=== PATIENT | male | born 1985 | race Two or more races ===

== ENCOUNTER 2017-09-12 09:25 | Emergency (ER) | payer OTHER ==
[2017-09-12 09:43] VITALS: TEMP 98.4; BMI 22.2
[2017-09-12] MEDS ORDERED: ONDANSETRON 4 MG/2 ML VIAL IVPB ONE (10:31)
[2017-09-12] MEDS ORDERED: MAG HYDROX/AL HYDROX/SIMETH 355 ML ORAL.SUSP PO ONE (10:36)
[2017-09-12] MEDS ORDERED: FAMOTIDINE 20 MG/50 ML IVPB 20 MG in PREMIX 50 IVPB ONE (10:36)
--- NOTE | 2017-09-12 10:37 | PDOC ---
History of Present Illness - General Chief Complaint: Vomiting/Diarrhea Stated Complaint: ABD CRAMPING, VOMITING Time Seen by Provider: 09/12/17 10:07 History Source: Patient Exam Limitations: No Limitations - History of Present Illness Travel History: No Initial Comments: 09/12/17 10:32 31-year-old gentleman no past medical history presenting with complaints of nausea, vomiting, diarrhea, nonradiating, crampy abdominal pain since last night. Patient states that he was fine when he was at work after he got home he began to have vomiting and diarrhea as well as crampy abdominal pain, no associated fever, chills, hematemesis, blood per rectum, melena. The patient does endorse feeling mild body aches and generalized weakness. The patient endorses that his daughter is feeling mild inversion of his symptoms. No recent travel. Patient denies any chest pain, back pain, neck pain, headache. Past History - Past Medical History Allergies/Adverse Reactions: Allergies Allergy/AdvReac Type Severity Reaction Status Date / Time No Known Allergies Allergy Verified 09/12/17 09:40 Home Medications: Ambulatory Orders Naproxen [Naprosyn] 500 mg PO BID PRN #20 tablet 01/06/13 No Home Medications 0 dose .ROUTE UTDICT 01/06/13 Oseltamivir Phosphate [Tamiflu -] 75 mg PO BID #10 capsule 11/19/15 Promethazine HCl/Codeine [Prometh-Codein 6.25-10 mg/5 ml] 5 ml PO Q8H PRN #50 syrup MDD 4 11/19/15 COPD: No Other medical history: denies. - Suicide/Smoking/Psychosocial Hx Smoking Status: Yes Smoking History: Never smoked Number of Cigarettes Smoked Daily: 7 Hx Alcohol Use: No Drug/Substance Use Hx: No Substance Use Type: Marijuana Review of Systems - Review of Systems Able to Perform ROS?: Yes Comments:: 09/12/17 10:34 Constitutional - no reported Fever, Chills, HEENT: no reported vision changes, sore throat Respiratory: no reported cough, sob, hemoptysis Cardiac: no reported chest pain, palpitations, light headedness, leg swelling Abd/GI: Endorses abd pain, nausea, vomiting, diarrhea no reported blood per rectum, melena, : no reported dysuria, frequency, discharge Musculskelatal - no reported back pain, joint swelling skin - no reported bruising, erythema, rash neurological: no reported headache, numbness, focal weakness, tingling, ataxia, hematologic: no reported anemia, easy bruising, easy bleeding *Physical Exam - Vital Signs Last Vital Signs Temp Pulse Resp BP Pulse Ox 98.4 F 59 L 19 121/66 98 09/12/17 09:40 09/12/17 09:40 09/12/17 09:40 09/12/17 09:40 09/12/17 09:40 - Physical Exam Comments: 09/12/17 10:35 GENERAL: The patient is awake, alert, and fully oriented, Nontoxic - in no acute distress. HEAD: Normocephalic, atraumatic. EYES: extraocular movements intact, sclera anicteric, conjunctiva clear. ENT: Normal voice, dry mucous membranes. NECK: Normal range of motion, supple LUNGS: Breath sounds equal, clear to auscultation bilaterally. No wheezes, no rhonchi, no rales. HEART: Regular rate and rhythm, normal S1 and S2 without murmur, rub or gallop. ABDOMEN: Soft, mild diffuse tenderness, worse on epgiastrcium/RUQ, normoactive bowel sounds. No guarding, no rebound. . No CVA tenderness EXTREMITIES: Normal range of motion, no edema. No clubbing or cyanosis. No cords, erythema, or tenderness. NEUROLOGICAL: No facial assymetry, Normal speech, PSYCH: Normal mood, normal affect. SKIN: Warm, Dry, normal turgor, ED Treatment Course - LABORATORY CBC & Chemistry Diagram: 09/12/17 11:06 09/12/17 11:06 Medical Decision Making - Medical Decision Making 09/12/17 10:36 31-year-old gentleman no past medical history presenting with complaint of nausea vomiting, diarrhea, crampy abdominal pain since last night without any fevers or chills. On exam the patient appears in no distress, has dry mucous membranes, abdomen reveals mild epigastric/right upper quadrant tenderness. Differential for the patient includes gastroenteritis, gb disease, pancreatitis , viral syndrome. Will obtain blood work, will hydrate the patient with 1 L of LR Will give Zofran for nausea, Pepcid, and Maalox 09/12/17 12:19 pt feeling paola tbilli elevated, in light of his RUQ tenderness will obtain a RUQ US will PO challenge the pt A portion of this note was documented by scribe services under my direction. I have reviewed the details of the note, within reason, and agree with the documentation with the following case summary and management plan written by me *DC/Admit/Observation/Transfer Diagnosis at time of Disposition: Gastroenteritis - Discharge Dispostion Disposition: HOME Condition at time of disposition: Improved Admit: No - Referrals Referrals: Kenneth Zacarias MD [Primary Care Provider] - - Patient Instructions Printed Discharge Instructions: DI for Viral Gastroenteritis -- Adult Additional Instructions: Return to the emergency department immediately with ANY new, persistent or worsening symptoms including worsening abdominal pain, fevers, inability to tolerate oral intake, chest pain, shortness of breath or any other concerns. Stay well hydrated. You MUST call and follow up with your doctor tomorrow. Your emergency department visit is not complete without a followup with your doctor for reevaluation. Please make sure your doctor reviews the results of your emergency evaluation. Print Language: AMHARIC - Post Discharge Activity
[2017-09-12] MEDS ORDERED: LACTATED RINGERS SOLUTION 1000 ML INFUS.BAG IV ONE (10:45)
[2017-09-12] MEDS ORDERED: MAG HYDROX/AL HYDROX/SIMETH 30 ML UNIT-DOSE CUP ONE (11:14)
[2017-09-12] MEDS ORDERED: FAMOTIDINE 20 MG/50 ML IVPB 20 MG/50 ML MG IVPB ONE (11:15)
[2017-09-12] MEDS ORDERED: ONDANSETRON 4 MG/2 ML VIAL ONE (11:15)
[2017-09-12 11:24] LABS: URINE APPEARANCE CLEAR; URINE BILIRUBIN NEGATIVE (NEGATIVE); URINE BLOOD NEGATIVE (NEGATIVE); URINE COLOR YELLOW; URINE GLUCOSE (UA) NEGATIVE (NEGATIVE); URINE KETONE 2+ (NEGATIVE); URINE NITRITE NEGATIVE (NEGATIVE)
[2017-09-12 11:28] LABS: URINE LEUK ESTERASE 1+ (NEGATIVE); URINE PROTEIN 1+ (NEGATIVE)
[2017-09-12 11:29] LABS: EPI CELLS RARE /HPF (FEW); URINE MUCUS MODERATE
[2017-09-12 11:45] LABS: ALBUMIN 4.6 g/dl (3.4-5.0); ANION GAP 9 (8-16); BILIRUBIN,TOTAL 1.4 mg/dL (0.2-1.0); BLOOD UREA NITROGEN 13 mg/dL (7-18); CALCIUM 8.9 mg/dL (8.5-10.1); CHLORIDE 105 mmol/L (98-107); CO2 26 mmol/L (21-32); CREATININE 0.9 mg/dL (0.7-1.3); GLUCOSE,RANDOM 73 mg/dL (74-106); LIPASE 95 U/L (73-393); SGPT/ALT 28 U/L (12-78); SODIUM 140 mmol/L (136-145); TOT PROT 7.5 g/dl (6.4-8.2)
[2017-09-12 11:46] LABS: ALK PHOS 71 U/L (45-117)
[2017-09-12 11:52] LABS: BASO % 0.4 % (0-2.0); HEMATOCRIT 48.3 % (35.4-49); HEMOGLOBIN 16.2 GM/dL (11.7-16.9); LYMPH % 15.5 % (8-40); MCHC 33.5 g/dl (32.0-35.9); MEAN CELL VOLUME 92.6 fl (80-96); MONO % 9.2 % (3.8-10.2); NEUT % 73.9 % (42.8-82.8); PLATELET COUNT 233 K/MM3 (134-434); RBC 5.22 M/mm3 (4.00-5.60); RDW 12.8 % (11.9-15.9); SGOT/AST 31 U/L (15-37); WHITE BLOOD COUNT 8.2 K/mm3 (4.0-10.0)
[2017-09-12 15:09] VITALS: BP 124/81; PULSE 60
== END 2017-09-12 15:16 | disposition home or self-care (01) ==
LOC: JER 09:25
PROC: 3E033GC Introduction of Other Therapeutic Substance into Peripheral Vein, Percutaneous Approach (ICD-10-PCS; principal; 2017-09-12)
PROC: 3E033GC Introduction of Other Therapeutic Substance into Peripheral Vein, Percutaneous Approach (ICD-10-PCS; 2017-09-12)
DX: K52.9 Noninfective gastroenteritis and colitis, unspecified (principal)
CPT/HCPCS: 36415; 76705-TC; 80053; 81003; 81015; 83690; 85025; 96365; 96375; 99282-25

== ENCOUNTER 2021-07-30 11:04 | Emergency (ER) | payer OTHER ==
[2021-07-30 11:26] VITALS: BP 116/76; PULSE 80; TEMP 98.6; BMI 24.3
[2021-07-31 16:07] LABS: SARS-CoV-2 NAA Detected (Not Detected)
== END 2021-07-30 13:09 | disposition home or self-care (01) ==
LOC: JER 11:04
DX: U07.1 COVID-19 (principal)
CPT/HCPCS: 87804; 99283-25; C9803; U0003; U0005

== ENCOUNTER 2022-09-05 13:13 | Emergency (ER) | payer OTHER ==
[2022-09-05 13:29] VITALS: BP 134/85; PULSE 65; RESP 17; TEMP 97.7; BMI 22.7
[2022-09-05] MEDS ORDERED: IBUPROFEN 600 MG TABLET (FP) PO ONE ×2 (14:04→14:05)
== END 2022-09-05 14:20 | disposition home or self-care (01) ==
LOC: JERFT 13:13
DX: S90.32XA Contusion of left foot, initial encounter (principal); W20.8XXA Other cause of strike by thrown, projected or falling object, initial encounter
CPT/HCPCS: 73630-TC-LT; 99283-25

== ENCOUNTER 2022-10-14 16:30 | Emergency (ER) | payer OTHER ==
[2022-10-14 16:58] VITALS: BP 121/67; PULSE 63; RESP 18; TEMP 98.1; BMI 22.6
== END 2022-10-14 18:52 | disposition home or self-care (01) ==
LOC: JER 16:30 → JERFT 16:30
DX: L73.9 Follicular disorder, unspecified (principal)
CPT/HCPCS: 99282-25